=== PATIENT | female | born 2000 | race Hispanic/Latino ===

== ENCOUNTER 2023-09-06 12:37 | Emergency (ER) | payer BC ==
[2023-09-06 13:13] LABS: Bilirubin Neg (Negative); Blood, Urine Negative (Negative); Clarity Slightly Cloudy (Clear); Glucose, Urine (Dipstick) Normal (Negative); Ketone, Urine Negative (Negative); Leukocyte 500 (Negative); Nitrite Negative (Negative); Protein, Urine (Dipstick) 15 mg/dl (Neg-Trace); Specific Gravity, Urine 1.015 (1.005-1.030); Urobilinogen Normal mg/dL (Less than 2)
[2023-09-06 13:27] LABS: Bacteria/HPF 2+ HPF (None Seen); CAUTI Indications for Culture Pelvic or flank pain; RBC/HPF 0-3 HPF (0-3)
[2023-09-06 13:29] LABS: Urine Culture Reflex No No
[2023-09-06 14:13] LABS: #Eosinphils 0.1 10x3/uL (0.0-0.5); #Monocytes 0.7 10x3/uL (0.0-1.1); #Neutrophils 5.3 10x3/uL (1.5-8.4); %Basophils 0.3 % (0.0-2.0); %Eosinophils 0.9 % (0.0-6.0); %Lymphocytes 28.4 % (18.0-47.0); %Monocytes 8.3 % (0.0-10.0); %Neutrophils 61.8 % (40.0-75.0); Hematocrit 38.8 % (34.9-44.5); Hemoglobin 12.7 g/dL (12.0-15.5); Mean Corpuscular HGB CONC 32.7 g/dL (32.0-36.0); Mean Corpuscular Hemoglobin 27.7 pg (27.0-33.0); Mean Corpuscular Volume 84.7 fl (81.6-98.3); Mean Platelet Volume 10.9 fl (7.4-10.4); Platelet Count 247 10x3/uL (150-450); RBC Distribution Width 13.7 % (11.5-14.5); Red Blood Cell (RBC) Count 4.58 10x6/uL (3.90-5.03); White Blood Cell (WBC) Count 8.7 10x3/uL (3.5-10.5)
[2023-09-06 14:30] LABS: ALT (SGPT) 12 U/L (8-55); AST (SGOT) 12 U/L (5-34); Albumin 3.9 g/dL (3.5-5.0); Alkaline Phosphatase 42 U/L (40-110); Anion Gap 12 mmol/L (10-20); BUN (Urea Nitrogen) 8 mg/dL (7.0-18.7); Bilirubin, Total 0.7 mg/dL (0.2-1.2); Calc. Creatinine Clearance 0 mL/min (70-130); Calcium 8.8 mg/dL (7.8-10.44); Carbon Dioxide 22 mmol/L (22-29); Chloride 107 mmol/L (98-107); Estimated GFR 130; Globulin 2.8 g/dL (2.4-3.5); Glucose 96 mg/dL (70-105); Protein, Total 6.7 g/dL (6.0-8.3); Sodium 137 mmol/L (136-145)
== END 2023-09-06 14:16 | disposition home or self-care (01) ==
LOC: CSHERS 12:37
DX: O23.41 Unspecified infection of urinary tract in pregnancy, first trimester (principal); N39.0 Urinary tract infection, site not specified; O99.891 Other specified diseases and conditions complicating pregnancy; D27.0 Benign neoplasm of right ovary; Z3A.09 9 weeks gestation of pregnancy
CPT/HCPCS: 76856; 80053; 81001; 84702; 85025

== ENCOUNTER 2024-03-18 12:00 | Observation (INO) | payer BC, OTHER ==
[2024-03-19] MEDS ORDERED: hydrALAZINE 20 MG/ML VIAL SLOW IVP PRN (12:49)
== END 2024-03-19 13:37 | disposition home or self-care (01) ==
LOC: EDUNIT# 12:00 → CSHLD 03-19 11:32
PROVIDERS: ADMIT Student in an Organized Health Care Education/Training Program; ATTEND Student in an Organized Health Care Education/Training Program
PROC: 0UCC0ZZ Extirpation of Matter from Cervix, Open Approach (ICD-10-PCS; principal; 2024-03-19)
DX: O34.33 Maternal care for cervical incompetence, third trimester (principal); Z79.899 Other long term (current) drug therapy; Z3A.36 36 weeks gestation of pregnancy

== ENCOUNTER 2024-03-21 14:50 | Day surgery (SDC) | payer BC, OTHER ==
[2024-03-21 15:22] VITALS: BMI 38.7
[2024-03-21] MEDS ORDERED: hydrALAZINE 20 MG/ML VIAL SLOW IVP PRN (15:45)
[2024-03-21] MEDS: Morphine 4 MG/ML VIAL ONE (16:05)
[2024-03-21] MEDS ORDERED: Morphine 4 MG/ML VIAL IM PRN (16:12)
== END 2024-03-21 16:34 | disposition home or self-care (01) ==
LOC: CSHLD/OP 14:50
PROVIDERS: ATTEND Obstetrics & Gynecology
DX: O47.1 False labor at or after 37 completed weeks of gestation (principal); O00.01 Abdominal pregnancy with intrauterine pregnancy; Z79.899 Other long term (current) drug therapy; Z3A.37 37 weeks gestation of pregnancy
CPT/HCPCS: 96372; 99282; J2270

== ENCOUNTER 2024-03-23 04:09 | Day surgery (SDC) | payer BC, OTHER ==
[2024-03-23 04:18] VITALS: BMI 38.3
[2024-03-23] MEDS ORDERED: hydrALAZINE 20 MG/ML VIAL SLOW IVP PRN (05:17)
[2024-03-23 05:25] LABS: Bilirubin Neg (Negative); Blood, Urine 25 (Negative); Clarity Clear (Clear); Glucose, Urine (Dipstick) Normal (Negative); Ketone, Urine 50 mg/dL (Negative); Leukocyte 100 (Negative); Nitrite Negative (Negative); Protein, Urine (Dipstick) 30 mg/dl (Neg-Trace); pH, Urine 6.5 (5.0-9.0)
[2024-03-23] MEDS: Acetaminophen 500 MG TAB PO SCH (05:29)
[2024-03-23 05:36] LABS: Bacteria/HPF Rare-Few HPF (None Seen); CAUTI Indications for Culture Dysuria,urgency,freq
[2024-03-23 05:37] LABS: Urine Culture Reflex No No
[2024-03-23] MEDS: Lactated Ringer's 1,000 ML IV SCH (05:54)
== END 2024-03-23 06:56 | disposition home or self-care (01) ==
LOC: CSHLD/OP 04:09
PROVIDERS: ATTEND Obstetrics & Gynecology
DX: O47.1 False labor at or after 37 completed weeks of gestation (principal); Z3A.37 37 weeks gestation of pregnancy; Z79.899 Other long term (current) drug therapy
CPT/HCPCS: 81001; 87086; 96360; 99283

== ENCOUNTER 2024-03-23 18:38 | Day surgery (SDC) | payer BC, OTHER ==
[2024-03-23] MEDS ORDERED: hydrALAZINE 20 MG/ML VIAL SLOW IVP PRN (19:44)
[2024-03-23 19:57] LABS: Fetal Membranes Rupture No Membranes Rupture (No Rupture)
== END 2024-03-23 20:34 | disposition home or self-care (01) ==
LOC: CSHLD/OP 18:38
PROVIDERS: ATTEND Family Medicine
DX: O41.8X30 Other specified disorders of amniotic fluid and membranes, third trimester, not applicable or unspecified (principal); B00.9 Herpesviral infection, unspecified; Z3A.37 37 weeks gestation of pregnancy; Z79.899 Other long term (current) drug therapy; O47.1 False labor at or after 37 completed weeks of gestation
CPT/HCPCS: 81001; 84112; 87077; 87086; 96360; 99283

== ENCOUNTER 2024-04-02 03:42 | Day surgery (SDC) | payer BC, OTHER ==
[2024-04-02] MEDS ORDERED: hydrALAZINE 20 MG/ML VIAL SLOW IVP PRN (03:53)
[2024-04-02 04:05] VITALS: BMI 36.6
== END 2024-04-02 04:39 | disposition home or self-care (01) ==
LOC: CSHERS 03:42 → CSHLD/OP 04:39
PROVIDERS: ATTEND Obstetrics & Gynecology
DX: O47.1 False labor at or after 37 completed weeks of gestation (principal); O46.93 Antepartum hemorrhage, unspecified, third trimester; O34.33 Maternal care for cervical incompetence, third trimester; O98.513 Other viral diseases complicating pregnancy, third trimester; B00.9 Herpesviral infection, unspecified; Z79.899 Other long term (current) drug therapy; Z3A.38 38 weeks gestation of pregnancy
CPT/HCPCS: 99283

== ENCOUNTER 2024-04-04 22:07 | Inpatient (IN) | payer BC, OTHER ==
[2024-04-04 22:33] VITALS: BMI 38.9
[2024-04-04 22:47] LABS: Fetal Membranes Rupture RUPTURE DETECTED (No Rupture)
[2024-04-04] MEDS ORDERED: Carboprost 250 MCG/ML AMP IM PRN (23:14)
[2024-04-04] MEDS ORDERED: Methylergonovine 0.2 MG/ML VIAL IM PRN (23:14)
[2024-04-04] MEDS ORDERED: Docusate 100 MG CAP PO PRN (23:14)
[2024-04-04] MEDS ORDERED: fentaNYL 50 mcg/mL 1 mL Vial SLOW IVP PRN (23:14)
[2024-04-04] MEDS ORDERED: hydrALAZINE 20 MG/ML VIAL SLOW IVP PRN (23:14)
[2024-04-04] MEDS ORDERED: Tranexamic Acid 1,000 MG/10 ML VIAL IVP PRN (23:14)
[2024-04-04] MEDS ORDERED: Lidocaine 1% (PF) 30 ML VIAL SC PRN (23:14)
[2024-04-04] MEDS ORDERED: Misoprostol 200 MCG TAB PR PRN (23:14)
[2024-04-04] MEDS ORDERED: Diphenoxylate HCl/Atropine Tablet PO PRN (23:14)
[2024-04-04] MEDS ORDERED: Promethazine HCl 25 MG/ML VIAL IM PRN (23:14)
[2024-04-04] MEDS ORDERED: Ondansetron PF 4 MG/2 ML Vial IVP PRN (23:14)
[2024-04-04] MEDS ORDERED: Penicillin G Potassium 5 MILL.UNITS in Sodium Chloride 0.9% 100 ML IVPB SCH (23:15)
[2024-04-04] MEDS: Penicillin G Potassium 5 MILL.UNITS VIAL ONE (23:22)
[2024-04-04] MEDS ORDERED: Misoprostol 100 MCG TAB VAG SCH (23:30)
[2024-04-04] MEDS ORDERED: Oxytocin 30 units/NS 500 ML 500 ML IV SCH (23:30)
[2024-04-04] MEDS ORDERED: Lactated Ringer's 1,000 ML IV SCH (23:30)
[2024-04-04 23:34] LABS: Hematocrit 34.4 % (34.9-44.5); Hemoglobin 11.3 g/dL (12.0-15.5); Mean Corpuscular HGB CONC 32.8 g/dL (32.0-36.0); Mean Corpuscular Hemoglobin 26.7 pg (27.0-33.0); Mean Corpuscular Volume 81.3 fL (81.6-98.3); Mean Platelet Volume 12.5 fL (7.4-10.4); Platelet Count 227 10x3/uL (150-450); RBC Distribution Width 14.9 % (11.5-14.5); Red Blood Cell (RBC) Count 4.23 10x6/uL (3.90-5.03); White Blood Cell (WBC) Count 10.4 10x3/uL (3.5-10.5)
[2024-04-05 00:23] LABS: HBsAg Index 0.16 S/CO (0-0.99); Hep B Surf Ag - L&D Non-Reactive S/CO (NonReactive)
[2024-04-05 00:24] LABS: Syphilis Antibody Nonreactive (Nonreactive); Syphilis Antibody Index 0.09 S/CO (<1.00 Non-Reactive)
[2024-04-05] MEDS: Penicillin G 2.5 MILL.units 2.5 MILL.UNITS in Premix 1 BAG IVPB SCH (03:30)
[2024-04-05] MEDS: Oxytocin 30 units/NS 500 ML 500 ML IV SCH (03:54)
[2024-04-05] MEDS: fentaNYL/Ropivacaine Epidural 100 ML ONE (05:41)
[2024-04-05] MEDS ORDERED: Naloxone HCl 0.4 mg/ml Vial IVP PRN ×2 (06:06)
[2024-04-05] MEDS ORDERED: Ondansetron PF 4 MG/2 ML Vial IVP PRN (06:06)
[2024-04-05] MEDS ORDERED: Lactated Ringer's 500 ML IV PRN (06:06)
[2024-04-05] MEDS ORDERED: Moisturizing Cream (Eucerin) 113 GM JAR TOP PRN (06:06)
[2024-04-05] MEDS ORDERED: fentaNYL 2 mcg/Ropivacaine 0.2% Epidural 100 ML CADD EPIDURAL SCH (06:15)
[2024-04-05] MEDS ORDERED: Communication Order-Pharmacy FS SCH (06:15)
[2024-04-05] MEDS: ePHEDrine Sulfate 50 MG/10 ML VIAL SLOW IVP PRN (12:14)
[2024-04-05] MEDS: diphenhydrAMINE 50 MG/ML VIAL IVP PRN (16:30)
[2024-04-05] MEDS: Acetaminophen 500 MG TAB PO PRN (17:46)
[2024-04-05] MEDS: Azithromycin 500 MG in Sodium Chloride 0.9% 250 ML 250 ML IVPB SCH (19:26)
[2024-04-05 22:00] LABS: Analyzer IN Cardio CS NICU; RapidComm Collect By RN
[2024-04-05] MEDS ORDERED: Bisacodyl 10 MG SUPP PR PRN (22:01)
[2024-04-05] MEDS ORDERED: Preparation H Ointment 28 GM TUBE PR PRN (22:01)
[2024-04-05] MEDS ORDERED: Milk Of Magnesia 30 ML UDCUP PO PRN (22:01)
[2024-04-05] MEDS ORDERED: diphenhydrAMINE 25 MG CAP PO PRN (22:01)
[2024-04-05] MEDS ORDERED: hydrALAZINE 20 MG/ML VIAL SLOW IVP PRN (22:01)
[2024-04-05 22:04] LABS: Analyzer IN Cardio CS NICU; RapidComm Collect By RN
[2024-04-05] MEDS: Ibuprofen 800 MG TAB PO PRN (23:05)
[2024-04-06] MEDS: Dexmedetomidine 200 MCG/2 ML VIAL ONE (01:05)
[2024-04-06] MEDS: Boostrix 0.5 ML (Tdap) VIAL (>/=7 yrs of age) IM ONE (01:05)
[2024-04-06] MEDS ORDERED: Benzocaine-Menthol 82.5 ML CAN TOP PRN (01:31)
[2024-04-06 04:26] LABS: #Basophils 0.01 10x3/uL (0.0-0.2); #Eosinphils 0.02 10x3/uL (0.0-0.5); #Monocytes 1.01 10x3/uL (0.0-1.1); #Neutrophils 13.12 10x3/uL (1.5-8.4); %Basophils 0.1 % (0.0-2.0); %Eosinophils 0.1 % (0.0-6.0); %Lymphocytes 7.4 % (18.0-47.0); %Monocytes 6.6 % (0.0-10.0); %Neutrophils 85.3 % (40.0-75.0); Hematocrit 30.3 % (34.9-44.5); Hemoglobin 9.7 g/dL (12.0-15.5); Mean Corpuscular Hemoglobin 26.2 pg (27.0-33.0); Mean Corpuscular Volume 81.9 fL (81.6-98.3); Mean Platelet Volume 12.1 fL (7.4-10.4); Platelet Count 184 10x3/uL (150-450); RBC Distribution Width 14.9 % (11.5-14.5); White Blood Cell (WBC) Count 15.4 10x3/uL (3.5-10.5)
[2024-04-06] MEDS: Ibuprofen 800 MG TAB PO SCH (06:17)
[2024-04-06] MEDS ORDERED: Bupivacaine 0.25% HCL 30 ML VIAL ONE (07:00)
[2024-04-06] MEDS ORDERED: ePHEDrine Sulfate 50 MG/10 ML VIAL ONE (07:00)
[2024-04-06] MEDS: Docusate 100 MG CAP PO SCH (08:15)
[2024-04-06] MEDS: Ferrous Sulfate 325 MG TAB PO SCH (08:15)
[2024-04-06] MEDS: Prenatal Vitamin 1 TAB PO SCH (08:16)
[2024-04-07 07:55] VITALS: BP 119/81; TEMP 98.2
[2024-04-07] MEDS: Acetaminophen 325 MG TAB PO PRN (08:57)
[2024-04-07] MEDS: Promethazine HCl 25 MG/ML VIAL IM PRN (09:00)
== END 2024-04-07 13:10 | disposition home or self-care (01) | DRG 805 ==
LOC: CSHLD/OP 22:07 → CSHLD 22:57 → CSHPP 04-06 00:30
PROVIDERS: ADMIT Obstetrics & Gynecology; ATTEND Obstetrics & Gynecology
PROC: 10E0XZZ Delivery of Products of Conception, External Approach (ICD-10-PCS; principal; 2024-04-05)
PROC: 0HQ9XZZ Repair Perineum Skin, External Approach (ICD-10-PCS; 2024-04-05)
PROC: 0UQMXZZ Repair Vulva, External Approach (ICD-10-PCS; 2024-04-05)
DX: O42.02 Full-term premature rupture of membranes, onset of labor within 24 hours of rupture (principal); O34.33 Maternal care for cervical incompetence, third trimester; Z37.0 Single live birth; O26.873 Cervical shortening, third trimester; O98.32 Other infections with a predominantly sexual mode of transmission complicating childbirth; Z3A.39 39 weeks gestation of pregnancy; O99.824 Streptococcus B carrier state complicating childbirth; A60.00 Herpesviral infection of urogenital system, unspecified; Z79.899 Other long term (current) drug therapy; O70.0 First degree perineal laceration during delivery; O71.82 Other specified trauma to perineum and vulva; O77.0 Labor and delivery complicated by meconium in amniotic fluid; O46.93 Antepartum hemorrhage, unspecified, third trimester; B00.9 Herpesviral infection, unspecified
CPT/HCPCS: 36415; 51701; 51702; 82805; 84112; 85025; 85027; 86780; 86850; 86900; 86901; 87340; 99283; 99285; J0456; J0665; J1200; J2540; J2550; J2590; J7050